=== PATIENT | female | born 1990 | race Caucasian/White ===

== ENCOUNTER 2021-01-05 06:27 | Inpatient (IN) | payer OTHER ==
[2021-01-05] VITALS (39 sets, daily range): BP systolic 97–139; BP diastolic 53–88; PULSE 59–117; TEMP 97.7–98.6
[~2021-01-05] VITALS: Ht 182.9 cm; Wt 112.7 kg
--- NOTE | 2021-01-05 06:30 | NUR ---
0630- 39.0, G3L1 arrives on unit for scheduled IOL. Ambulatory to LDR6. Oriented to room and plan of care. Patient reports normal movement, and irregular contractions. Denies any LOF or VB. 0655- IV to left wrist. Routine labs obtained via IV site. IVF infusing. Assessment completed and VS obtained. 0715- SVE by this RN /-3. Pitocin explained and started at 2mu per orders. Questions invited and answered. Patient resting with call light within reach.
[2021-01-05] MEDS ORDERED: PRENATAL TABLET PO (07:22)
[2021-01-05] MEDS ORDERED: PEPCID 20MG TAB20 MG PO (07:22)
[2021-01-05 07:58] LABS: BASO % 0.3 % (0.0-2.0); EOS # 0.2 (0.0-0.7); EOS % 1.9 % (0-4.0); GRAN # 6.7 (1.4-6.5); GRAN % 65.9 % (42.2-75.2); HEMOGLOBIN 11.8 g/dl (12.5-16.0); LYMPH # 2.6 (1.2-3.4); LYMPH % 25.5 % (20.0-51.0); MEAN CELL VOLUME 95 fl (80.0-100.0); MEAN CORPUSCULAR HEMOGLOBIN 32 pg (27.0-31.0); MEAN CORPUSCULAR HGB CONC 34 g/dl (33.0-37.0); MEAN PLATELET VOLUME 11.9 fl (7.4-10.4); MONO # 0.6 (0.1-0.6); MONO % 5.9 % (1.7-9.3); PLATELET COUNT 184 K/mm3 (130-400); RED BLOOD COUNT 3.69 M/mm3 (4.10-5.30); REDCELL DISTRIBUTION WIDTH-CV 12.6 % (11.5-14.5)
[2021-01-05 08:01] LABS: HEMATOCRIT 34.9 % (37.0-47.0)
--- NOTE | 2021-01-05 12:41 | NUR ---
1241- Patient reports increased rectal pressure. Dr. Araujo to bedside. SVE C/+2. Patient instructed on pushing with contractions. 1251- Patient begins to push with contractions with Dr. Araujo at bedside. Moves vertex well. 1253- Spontaneous vaginal delivery of viable male . To mother's chest where dried and stimulated by nursery RN. Pitocin paused. 1255- Cord clamped x2 and cut by father or . Care of assumed by Vicky Mccain RN. To warmer per mother's request. 1256- Spontaneous and intact delivery of placenta. Pitocin resumed at 333ml/hr per protocol. Second degree perineal laceration repaired by Dr. Araujo. Fundus firm, midline, and bleeding minimal. Annita care provided, pads changed, and ice pack to perineum. Plan of care and safey precautions reviewed. Patient resting with call light within reach. See doctor dictation, anesthesia record, and nurses notes.
--- NOTE | 2021-01-05 15:15 | NUR ---
Patient assisted to edge of bed. Denies any dizziness or lightheadedness. Ambulatory to bathroom. Unable to void at this time. Encouraged to increase fluids and attempt void in 1 hour. Patient verbalizes understanding. Annita care provided, clean gown on, and ice pack to perineum. To room 208. Oriented to room and plan of care. Patient denies questions or needs. Resting with call light within reach.
[2021-01-06 00:50] VITALS: BP 138/73; PULSE 87; TEMP 97.9
[2021-01-06 04:40] VITALS: BP 117/73; PULSE 76; TEMP 97.9
[2021-01-06 07:31] LABS: HEMOGLOBIN 12.7 g/dl (12.5-16.0)
[2021-01-06 08:20] VITALS: BP 128/76; PULSE 86; TEMP 97.8
[2021-01-06] MEDS ORDERED: IBU600 MG PO (09:20)
== END 2021-01-06 16:45 | disposition home or self-care (01) | DRG 807 ==
LOC: LDR 06:27 → OB 06:27
PROVIDERS: ADMIT Obstetrics & Gynecology
PROC: 10E0XZZ Delivery of Products of Conception, External Approach (ICD-10-PCS; principal; 2021-01-05)
PROC: 0KQM0ZZ Repair Perineum Muscle, Open Approach (ICD-10-PCS; 2021-01-05)
DX: O36.63X0 Maternal care for excessive fetal growth, third trimester, not applicable or unspecified (principal); Z37.0 Single live birth; Z3A.39 39 weeks gestation of pregnancy; O99.62 Diseases of the digestive system complicating childbirth; O70.1 Second degree perineal laceration during delivery; O99.344 Other mental disorders complicating childbirth; F32.9 Major depressive disorder, single episode, unspecified
CPT/HCPCS: J2590; J2795; J7120

== ENCOUNTER → 2021-01-05 | Outpatient (CLI) | payer OTHER ==
[~2021-01-05] MED LIST: IBU600 MG PO; PEPCID 20MG TAB20 MG PO; PRENATAL TABLET PO
== END ==
LOC: ZCOL.LAB 01-02 10:12
DX: Z20.822 Contact with and (suspected) exposure to COVID-19 (principal)